=== PATIENT | female | born 1955 | race Hispanic/Latino ===

== ENCOUNTER 2021-03-01 15:05 | Inpatient (IN) | payer MEDICARE ==
[~2021-03-01 15:05] MED LIST: Iopamidol-370 76% 500 ML 1 ML ONE
[2021-03-01] MEDS ORDERED: Aspirin Chewable 81 MG TAB ONE (15:43)
[2021-03-01] MEDS ORDERED: Labetalol HCl 100 MG/20 ML VIAL ONE (15:43)
[2021-03-01 16:01] LABS: #Lymphocytes 1.2 thou/uL (1.20-3.40); #Monocytes 0.5 thou/uL (0.11-0.59); #Neutrophils 7.2 thou/uL (1.40-6.50); %Basophils 0.5 % (0.0-1.0); %Eosinophils 0.5 % (0.0-10.0); %Lymphocytes 13.6 % (21.0-51.0); %Monocytes 5.5 % (0.0-10.0); %Neutrophils 79.9 % (42.0-75.0); Hemoglobin 13.2 g/dL (12.0-16.0); Mean Corpuscular HGB CONC 34.2 g/dL (32.0-36.0); Mean Platelet Volume 7.3 fL (7.4-10.4); Platelet Count 236 thou/uL (130-400); RBC Distribution Width 11.3 % (11.5-14.5); Red Blood Cell (RBC) Count 3.66 mill/uL (4.20-5.40)
[2021-03-01 16:41] LABS: ALT (SGPT) 28 U/L (8-55); AST (SGOT) 36 U/L (5-34); Albumin 3.9 g/dL (3.4-4.8); Alkaline Phosphatase 105 U/L (40-110); Anion Gap 13 mmol/L (10-20); BUN (Urea Nitrogen) 6 mg/dL (9.8-20.1); Bilirubin, Total 0.7 mg/dL (0.2-1.2); Calc. Creatinine Clearance 0 mL/min (70-130); Calcium 9.3 mg/dL (7.8-10.44); Carbon Dioxide 26 mmol/L (23-31); Chloride 101 mmol/L (98-107); Globulin 2.7 g/dL (2.4-3.5); Glucose 194 mg/dL (80-115); Lipase 51 U/L (8-78); Magnesium 1.8 mg/dL (1.6-2.6); Potassium 4.6 mmol/L (3.5-5.1); Protein, Total 6.6 g/dL (5.8-8.1); Sodium 135 mmol/L (136-145)
[2021-03-01 17:12] LABS: Bacteria/HPF 4+ HPF (None Seen); Bilirubin Negative (Negative); Blood, Urine 1+ (Negative); Clarity Clear (Clear); Glucose, Urine (Dipstick) 70 mg/dL (Negative); Ketone, Urine Negative (Negative); Leukocyte 25 Leu/uL (Negative); Nitrite Negative (Negative); Protein, Urine (Dipstick) 100 mg/dL (Neg-Trace); RBC/HPF 0-3 HPF (0-3); Specific Gravity, Urine 1.004 (1.002-1.036); Squamous Epithelial None Seen HPF (0-3); Urobilinogen Normal mg/dL (Less than 2); pH, Urine 6.5 (5.0-9.0)
[2021-03-01 17:49] LABS: SARS-CoV-2 NAA Rapid Test Not Detected (NotDetected)
[2021-03-01] MEDS ORDERED: cefTRIAXone\\ROCEPHIN 1 GM VIAL ONE (18:45)
[2021-03-01] MEDS ORDERED: HumaLOG 300 UNITS/3 ML VIAL SC PRN (20:07)
[2021-03-01] MEDS ORDERED: Nitroglycerin 0.4 MG TAB (25 Tab Bottle) SL PRN (20:07)
[2021-03-01] MEDS ORDERED: Acetaminophen 325 MG TAB PO PRN (20:07)
[2021-03-01] MEDS ORDERED: Insulin Regular 300 UNITS/3 ML VIAL SC PRN (20:07)
[2021-03-01] MEDS ORDERED: Dextrose 50% Abboject 50 ML SYRINGE SLOW IVP PRN (20:07)
[2021-03-01] MEDS ORDERED: Dextrose 5% in Water 1,000 ML IV PRN (20:07)
[2021-03-01] MEDS ORDERED: Ondansetron PF 4 MG/2 ML Vial IVP PRN (20:07)
[2021-03-01 20:08] LABS: Troponin I Less than 0.010 ng/mL (< 0.028)
[2021-03-01 22:57] LABS: Troponin I 0.012 ng/mL (< 0.028)
[2021-03-01] MEDS ORDERED: Lorazepam 2 MG/ML VIAL SLOW IVP PRN (23:53)
[2021-03-02 00:26] VITALS: BMI 33.5
[2021-03-02] MEDS: chlordiazePOXIDE HCl 25 MG CAP PO SCH ×3 (01:15→17:24)
[2021-03-02 05:43] LABS: Hemoglobin A1c 5.5 % (4.0-6.0)
[2021-03-02 05:59] LABS: Anion Gap 11 mmol/L (10-20); BUN (Urea Nitrogen) 7 mg/dL (9.8-20.1); Calc. Creatinine Clearance 97 mL/min (70-130); Calcium 9.1 mg/dL (7.8-10.44); Carbon Dioxide 27 mmol/L (23-31); Cardiac Risk 2.1 (Less than 4.5); Chloride 106 mmol/L (98-107); Cholesterol 164 mg/dl (< 200 Desired); Glucose 103 mg/dL (80-115); HDL Cholesterol 78 mg/dL (>60 Neg Risk); LDL Cholesterol, Calculated 69 mg/dL; Potassium 4.1 mmol/L (3.5-5.1); Sodium 140 mmol/L (136-145); Triglycerides 85 mg/dL (Less than 150)
[2021-03-02 06:19] LABS: #Basophils 0.1 thou/uL (0.0-0.2); #Monocytes 0.6 thou/uL (0.11-0.59); #Neutrophils 5.1 thou/uL (1.40-6.50); %Basophils 0.8 % (0.0-1.0); %Eosinophils 0.5 % (0.0-10.0); %Lymphocytes 25.7 % (21.0-51.0); %Monocytes 8.1 % (0.0-10.0); %Neutrophils 64.9 % (42.0-75.0); Hemoglobin 12.3 g/dL (12.0-16.0); MDiff Complete? YES; Macrocytosis SLIGHT = 6-15 cells (100X) (0-5/hpf); Mean Corpuscular HGB CONC 35.2 g/dL (32.0-36.0); Mean Corpuscular Hemoglobin 37.6 pg (27.0-31.0); Mean Platelet Volume 7.3 fL (7.4-10.4); Platelet Count 240 thou/uL (130-400); RBC Distribution Width 11.3 % (11.5-14.5); Red Blood Cell (RBC) Count 3.28 mill/uL (4.20-5.40); White Blood Cell (WBC) Count 7.9 thou/uL (4.8-10.8)
[2021-03-02] MEDS: Multivitamin W/ Minerals 1 TAB PO SCH (09:21)
[2021-03-02] MEDS: Folic Acid 1 MG TAB PO SCH (09:21)
[2021-03-02] MEDS ORDERED: ADENOSINE 60 MG/20 ML VIAL ONE (09:31)
[2021-03-02] MEDS: Enoxaparin Sodium 40 MG/0.4 ML SYRINGE SC SCH (14:13)
[2021-03-02] MEDS: hydrALAZINE 20 MG/ML VIAL SLOW IVP PRN (14:21)
[2021-03-02] MEDS: cefTRIAXone\\ROCEPHIN 1 GM in Sodium Chloride 0.9% 100 ML IVPB SCH (17:25)
[2021-03-02] MEDS ORDERED: Amlodipine 10 MG TAB PO SCH (17:30)
[2021-03-03] MEDS ORDERED: chlordiazePOXIDE HCl 25 MG CAP PO SCH (03:00)
[2021-03-03 05:43] LABS: #Basophils 0.1 thou/uL (0.0-0.2); #Lymphocytes 2.1 thou/uL (1.20-3.40); #Monocytes 0.6 thou/uL (0.11-0.59); #Neutrophils 3.5 thou/uL (1.40-6.50); %Basophils 0.8 % (0.0-1.0); %Eosinophils 0.6 % (0.0-10.0); %Monocytes 9.3 % (0.0-10.0); %Neutrophils 56.3 % (42.0-75.0); Hemoglobin 13.2 g/dL (12.0-16.0); Mean Corpuscular HGB CONC 33.3 g/dL (32.0-36.0); Mean Corpuscular Hemoglobin 36.1 pg (27.0-31.0); Mean Platelet Volume 7.4 fL (7.4-10.4); Platelet Count 245 thou/uL (130-400); RBC Distribution Width 11.4 % (11.5-14.5); Red Blood Cell (RBC) Count 3.65 mill/uL (4.20-5.40); White Blood Cell (WBC) Count 6.2 thou/uL (4.8-10.8)
[2021-03-03 06:07] LABS: Anion Gap 11 mmol/L (10-20); BUN (Urea Nitrogen) 9 mg/dL (9.8-20.1); Calc. Creatinine Clearance 95 mL/min (70-130); Calcium 8.8 mg/dL (7.8-10.44); Carbon Dioxide 28 mmol/L (23-31); Chloride 107 mmol/L (98-107); Glucose 124 mg/dL (80-115); Potassium 3.9 mmol/L (3.5-5.1); Sodium 142 mmol/L (136-145)
[2021-03-03] MEDS: chlordiazePOXIDE HCl 25 MG CAP PO SCH (07:44)
[2021-03-03] MEDS: Folic Acid 1 MG TAB PO SCH ×2 (08:45→10:00)
[2021-03-03] MEDS: Multivitamin W/ Minerals 1 TAB PO SCH ×2 (08:45→10:00)
[2021-03-03] MEDS: Enoxaparin Sodium 40 MG/0.4 ML SYRINGE SC SCH (08:45)
[2021-03-03] MEDS: Amlodipine 10 MG TAB PO SCH ×2 (08:46→10:00)
[2021-03-03] MEDS: hydrALAZINE 20 MG/ML VIAL SLOW IVP PRN (08:46)
[2021-03-03] MEDS ORDERED: Lorazepam 2 MG/ML VIAL SLOW IVP PRN (09:27)
[2021-03-03] MEDS: Losartan 25 MG TAB PO SCH (10:00)
[2021-03-03] MEDS ORDERED: Ondansetron HCl/PF 4 MG/2 ML Vial IVP PRN (16:16)
[2021-03-03] MEDS ORDERED: Promethazine HCl 25 MG/ML VIAL IM PRN (16:16)
[2021-03-03] MEDS ORDERED: Fentanyl 100 MCG/2 ML VIAL ONE (16:16)
[2021-03-03] MEDS ORDERED: hydrALAZINE 20 MG/ML VIAL ONE (16:17)
[2021-03-03] MEDS ORDERED: hydrALAZINE 20 MG/ML VIAL SLOW IVP SCH (16:30)
[2021-03-03] MEDS: cefTRIAXone\\ROCEPHIN 1 GM in Sodium Chloride 0.9% 100 ML IVPB SCH (18:45)
[2021-03-03] MEDS ORDERED: Morphine 2 MG/ML VIAL SLOW IVP SCH (19:15)
[2021-03-04] MEDS ORDERED: Morphine 2 MG/ML VIAL SLOW IVP SCH (02:45)
[2021-03-04 05:19] LABS: #Basophils 0.1 thou/uL (0.0-0.2); #Eosinphils 0.1 thou/uL (0.0-0.7); #Lymphocytes 1.9 thou/uL (1.20-3.40); #Monocytes 0.6 thou/uL (0.11-0.59); #Neutrophils 6.5 thou/uL (1.40-6.50); %Basophils 1.3 % (0.0-1.0); %Eosinophils 0.6 % (0.0-10.0); %Lymphocytes 20.2 % (21.0-51.0); %Monocytes 6.7 % (0.0-10.0); %Neutrophils 71.3 % (42.0-75.0); Hemoglobin 12.7 g/dL (12.0-16.0); Mean Corpuscular HGB CONC 34.6 g/dL (32.0-36.0); Mean Corpuscular Hemoglobin 37.5 pg (27.0-31.0); Mean Platelet Volume 7.5 fL (7.4-10.4); Platelet Count 242 thou/uL (130-400); RBC Distribution Width 11.4 % (11.5-14.5); Red Blood Cell (RBC) Count 3.38 mill/uL (4.20-5.40); White Blood Cell (WBC) Count 9.2 thou/uL (4.8-10.8)
[2021-03-04 05:55] LABS: Anion Gap 16 mmol/L (10-20); BUN (Urea Nitrogen) 10 mg/dL (9.8-20.1); Calc. Creatinine Clearance 104 mL/min (70-130); Calcium 9.2 mg/dL (7.8-10.44); Carbon Dioxide 24 mmol/L (23-31); Chloride 107 mmol/L (98-107); Glucose 94 mg/dL (80-115); Magnesium 1.9 mg/dL (1.6-2.6); Potassium 3.7 mmol/L (3.5-5.1); Sodium 143 mmol/L (136-145)
[2021-03-04] MEDS: Amlodipine 10 MG TAB PO SCH (09:19)
[2021-03-04] MEDS: Enoxaparin Sodium 40 MG/0.4 ML SYRINGE SC SCH (09:20)
[2021-03-04] MEDS: Folic Acid 1 MG TAB PO SCH (09:21)
[2021-03-04] MEDS: Multivitamin W/ Minerals 1 TAB PO SCH (09:23)
[2021-03-04] MEDS: Losartan 25 MG TAB PO SCH (09:28)
[2021-03-04 11:14] VITALS: TEMP 97.9
[2021-03-04 13:32] VITALS: BP 140/63
== END 2021-03-04 13:20 | disposition home or self-care (01) | DRG 392 ==
LOC: ERS 15:05 → 3SE 19:18 → OBSVTOIN 03-03 09:31 → 2NO 03-04 00:41
PROVIDERS: ADMIT Internal Medicine; ATTEND Internal Medicine
PROC: 0D738ZZ Dilation of Lower Esophagus, Via Natural or Artificial Opening Endoscopic (ICD-10-PCS; principal; 2021-03-03)
DX: K22.2 Esophageal obstruction (principal); N39.0 Urinary tract infection, site not specified; I67.4 Hypertensive encephalopathy; T18.108A Unspecified foreign body in esophagus causing other injury, initial encounter; X58.XXXA Exposure to other specified factors, initial encounter; I10 Essential (primary) hypertension; E78.5 Hyperlipidemia, unspecified; F17.210 Nicotine dependence, cigarettes, uncomplicated; E78.00 Pure hypercholesterolemia, unspecified; E03.9 Hypothyroidism, unspecified; Z20.822 Contact with and (suspected) exposure to COVID-19; I16.0 Hypertensive urgency; F10.10 Alcohol abuse, uncomplicated; E11.9 Type 2 diabetes mellitus without complications; Z79.84 Long term (current) use of oral hypoglycemic drugs; Z79.899 Other long term (current) drug therapy; Z90.49 Acquired absence of other specified parts of digestive tract; I25.2 Old myocardial infarction
CPT/HCPCS: 36415; 36416; 70450; 71045; 71275; 78452; 80048; 80053; 80061; 81003; 81015; 83036; 83690; 83735; 83880; 84443; 84484; 85025; 85379; 87077; 87086; 87186; 93005; 93017; 94760; 96365; 96372; 96375; 96376; A9500; G0378; J0153; J0360; J0696; J1650; J1815; J2270; J3010; J3411; J3490; Q9967; U0002

== ENCOUNTER 2021-11-25 10:41 | Emergency (ER) | payer MEDICARE ==
[2021-11-25 12:09] LABS: #Lymphocytes 2.1 thou/uL (1.20-3.40); #Monocytes 0.4 thou/uL (0.11-0.59); #Neutrophils 5.5 thou/uL (1.40-6.50); %Basophils 0.2 % (0.0-1.0); %Eosinophils 0.2 % (0.0-10.0); %Lymphocytes 25.9 % (21.0-51.0); %Monocytes 4.5 % (0.0-10.0); %Neutrophils 69.1 % (42.0-75.0); Hemoglobin 12.6 g/dL (12.0-16.0); Mean Corpuscular Hemoglobin 34.6 pg (27.0-31.0); Mean Platelet Volume 6.7 fL (7.4-10.4); Platelet Count 337 thou/uL (130-400); RBC Distribution Width 11.8 % (11.5-14.5); Red Blood Cell (RBC) Count 3.63 mill/uL (4.20-5.40); White Blood Cell (WBC) Count 7.9 thou/uL (4.8-10.8)
[2021-11-25 12:30] LABS: ALT (SGPT) 22 U/L (8-55); AST (SGOT) 25 U/L (5-34); Albumin 4.2 g/dL (3.4-4.8); Alkaline Phosphatase 110 U/L (40-110); Anion Gap 13 mmol/L (10-20); BUN (Urea Nitrogen) 12 mg/dL (9.8-20.1); Bilirubin, Total 0.6 mg/dL (0.2-1.2); CK (CPK) 54 U/L (29-168); Calc. Creatinine Clearance 0 mL/min (70-130); Calcium 9.8 mg/dL (7.8-10.44); Carbon Dioxide 25 mmol/L (23-31); Chloride 106 mmol/L (98-107); Globulin 2.5 g/dL (2.4-3.5); Glucose 80 mg/dL (80-115); Lipase 65 U/L (8-78); Potassium 3.9 mmol/L (3.5-5.1); Protein, Total 6.7 g/dL (5.8-8.1); Sodium 140 mmol/L (136-145)
== END 2021-11-25 13:12 | disposition home or self-care (01) ==
LOC: ERS 10:41
DX: R60.0 Localized edema (principal); E11.9 Type 2 diabetes mellitus without complications; E78.5 Hyperlipidemia, unspecified; E78.00 Pure hypercholesterolemia, unspecified; I10 Essential (primary) hypertension; E03.9 Hypothyroidism, unspecified; I25.2 Old myocardial infarction; F17.210 Nicotine dependence, cigarettes, uncomplicated; Z86.73 Personal history of transient ischemic attack (TIA), and cerebral infarction without residual deficits; Z79.899 Other long term (current) drug therapy; Z79.84 Long term (current) use of oral hypoglycemic drugs
CPT/HCPCS: 36416; 71045; 80053; 82550; 83690; 83880; 84484; 85025; 93005; 93970

== ENCOUNTER 2023-04-13 08:29 | Emergency (ER) | payer OTHER | END 2023-04-13 11:00 | disposition home or self-care (01) | LOC: ERS 08:29 | DX: L29.9 Pruritus, unspecified (principal); E11.9 Type 2 diabetes mellitus without complications; I10 Essential (primary) hypertension; F17.210 Nicotine dependence, cigarettes, uncomplicated | CPT/HCPCS: 99282 ==

== ENCOUNTER 2023-11-12 09:05 | Emergency (ER) | payer OTHER ==
[2023-11-12] MEDS ORDERED: Dexamethasone 10 MG/ML VIAL ONE (09:34)
[2023-11-12] MEDS ORDERED: hydrOXYzine 25 MG TAB ONE (09:35)
== END 2023-11-12 09:50 | disposition home or self-care (01) ==
LOC: ERS 09:05
DX: L29.9 Pruritus, unspecified (principal); I10 Essential (primary) hypertension; E11.9 Type 2 diabetes mellitus without complications; I25.2 Old myocardial infarction; F17.210 Nicotine dependence, cigarettes, uncomplicated; Z86.73 Personal history of transient ischemic attack (TIA), and cerebral infarction without residual deficits
CPT/HCPCS: 96372; 99282; J1100

== ENCOUNTER 2023-11-14 19:13 | Emergency (ER) | payer OTHER ==
[2023-11-14] MEDS ORDERED: Famotidine 20 MG TAB ONE (20:18)
[2023-11-14] MEDS ORDERED: diphenhydrAMINE 25 MG CAP ONE (20:18)
[2023-11-14] MEDS ORDERED: Dexamethasone 10 MG/ML VIAL ONE (20:18)
== END 2023-11-14 21:44 | disposition home or self-care (01) ==
LOC: ERS 19:13
DX: L29.9 Pruritus, unspecified (principal); F17.210 Nicotine dependence, cigarettes, uncomplicated; I25.10 Atherosclerotic heart disease of native coronary artery without angina pectoris; E03.9 Hypothyroidism, unspecified; E11.9 Type 2 diabetes mellitus without complications; I10 Essential (primary) hypertension; E78.5 Hyperlipidemia, unspecified; Z86.718 Personal history of other venous thrombosis and embolism; Z75.8 Other problems related to medical facilities and other health care
CPT/HCPCS: 96372; 99282; J1100